=== PATIENT | female | born 1960 | race Caucasian/White ===

== ENCOUNTER → 2017-11-13 | Outpatient (CLI) | payer OTHER ==
[~2017-11-13] MED LIST: ALPR.25 PO; CYAN500; FAMO20 PO; LORA.5 PO; MYLANTA; [UNRECOGNIZED DRUG - REMARK]
[2017-11-15 12:18] LABS: HPV Genotype 16 Not Detected (NOTDET); HPV Genotype 18 Not Detected (NOTDET)
[2017-11-18 09:56] LABS: HPV High Risk Other Not Detected (NOTDET)
== END | disposition home or self-care (01) ==
LOC: LAB 16:01
PROVIDERS: Nurse Practitioner Women's Health
DX: Z12.72 Encounter for screening for malignant neoplasm of vagina (principal); Z91.89 Other specified personal risk factors, not elsewhere classified
CPT/HCPCS: 87624; G0123

== ENCOUNTER 2017-12-27 06:48 | Day surgery (SDC) | payer OTHER ==
[~2017-12-27] VITALS: Ht 162.6 cm; Wt 66.1 kg
== END 2017-12-27 09:14 | disposition home or self-care (01) ==
LOC: ORSCSDS 06:48
PROVIDERS: Internal Medicine Gastroenterology
PROC: 0DB68ZX Excision of Stomach, Via Natural or Artificial Opening Endoscopic, Diagnostic (ICD-10-PCS; principal; 2017-12-27 08:00)
PROC: 0DJD8ZZ Inspection of Lower Intestinal Tract, Via Natural or Artificial Opening Endoscopic (ICD-10-PCS; principal; 2017-12-27 08:00)
PROC: 0DB98ZX Excision of Duodenum, Via Natural or Artificial Opening Endoscopic, Diagnostic (ICD-10-PCS; principal; 2017-12-27 08:00)
DX: R10.11 Right upper quadrant pain (principal); K31.7 Polyp of stomach and duodenum; K44.9 Diaphragmatic hernia without obstruction or gangrene; R93.3 Abnormal findings on diagnostic imaging of other parts of digestive tract; K76.0 Fatty (change of) liver, not elsewhere classified; E78.5 Hyperlipidemia, unspecified
CPT/HCPCS: 88305; 88342; J0330; J1980; J2405; J7120

== ENCOUNTER 2020-09-22 09:32 | Emergency (ER) | payer OTHER ==
[~2020-09-22] VITALS: Ht 170.2 cm; Wt 72.6 kg
[2020-09-22 10:27] LABS: BASOPHILS ABSOLUTE AUTO 0.02 K/mm3 (0.00-0.23); BASOPHILS PERCENT AUTO 0 % (0-2); EOSINOPHILS ABSOLUTE AUTO 0.14 K/mm3 (0.00-0.68); EOSINOPHILS PERCENT AUTO 2 % (0-6); Hematocrit 42.5 % (33.0-51.0); Hemoglobin 14.4 g/dL (11.5-16.0); IMMATURE GRAN ABSOLUTE AUTO 0.02 K/mm3 (0.00-0.10); IMMATURE GRAN PERCENT AUTO 0 % (0-1); LYMPHOCYTES ABSOLUTE AUTO 1.97 K/mm3 (0.84-5.20); LYMPHOCYTES PERCENT AUTO 31 % (21-46); MONOCYTES ABSOLUTE AUTO 0.49 K/mm3 (0.16-1.47); MONOCYTES PERCENT AUTO 8 % (4-13); Mean Corpuscular HGB 29.7 pg (26.0-34.0); Mean Corpuscular HGB Conc 33.9 g/dL (31.5-36.5); Mean Corpuscular Volume 88 fL (80-100); Mean Platelet Volume 9.3 fL (9.1-12.4); NEUTROPHILS ABSOLUTE AUTO 3.67 K/mm3 (1.96-9.15); NEUTROPHILS PERCENT AUTO 58 % (41-73); Platelet Count 277 K/mm3 (150-400); RDW Standard Deviation 41.9 fL (35.1-46.3); Red Blood Cell Count 4.85 M/mm3 (3.80-5.20); White Blood Cell Count 6.31 K/mm3 (4.00-11.30)
[2020-09-22 10:40] LABS: Alanine Aminotransfer (ALT/SGP 18 U/L (12-78); Albumin, Blood 3.6 g/dL (3.4-5.0); Albumin/Globulin Ratio 1.1 (0.8-1.8); Alk Phos 115 U/L (50-136); Anion Gap 8 mmol/L (6-16); Aspartate Aminotrans (AST/SGOT 16 U/L (12-37); Bilirubin, Total 0.4 mg/dL (0.1-1.0); Blood Urea Nitrogen 14 mg/dL (8-24); Bun/Creatinine Ratio 18.2 (12.0-20.0); CO2, Blood 23 mmol/L (21-32); Calcium, Blood 9.4 mg/dL (8.5-10.1); Chloride, Blood 111 mmol/L (98-108); Creatinine, Blood 0.77 mg/dL (0.40-1.00); Globulin, Blood 3.4 g/dL (2.2-4.0); Glomerular Filtration Rate >60 (60-); Glucose, Blood 97 mg/dL (70-99); Potassium, Blood 4.3 mmol/L (3.5-5.5); Sodium, Blood 142 mmol/L (136-145); Troponin I <0.015 ng/mL (0.000-0.040)
== END 2020-09-22 14:10 | disposition home or self-care (01) ==
LOC: ER 09:32
PROVIDERS: Emergency Medicine
DX: R07.9 Chest pain, unspecified (principal); R42 Dizziness and giddiness; R06.02 Shortness of breath; E78.00 Pure hypercholesterolemia, unspecified; Z88.0 Allergy status to penicillin; Z88.5 Allergy status to narcotic agent; Z88.8 Allergy status to other drugs, medicaments and biological substances
CPT/HCPCS: 36415; 71046; 80053; 84484; 85025; 93005; 93010; 99285-25

== ENCOUNTER 2020-10-29 09:49 | Inpatient (IN) | payer OTHER ==
[~2020-10-29] VITALS: Ht 162.6 cm; Wt 63.5 kg
[2020-10-29 11:18] LABS: BASOPHILS ABSOLUTE AUTO 0.01 K/mm3 (0.00-0.23); BASOPHILS PERCENT AUTO 0 % (0-2); EOSINOPHILS ABSOLUTE AUTO 0.04 K/mm3 (0.00-0.68); EOSINOPHILS PERCENT AUTO 0 % (0-6); Hematocrit 43.1 % (33.0-51.0); Hemoglobin 14.4 g/dL (11.5-16.0); IMMATURE GRAN ABSOLUTE AUTO 0.05 K/mm3 (0.00-0.10); IMMATURE GRAN PERCENT AUTO 0 % (0-1); LYMPHOCYTES ABSOLUTE AUTO 1.61 K/mm3 (0.84-5.20); LYMPHOCYTES PERCENT AUTO 12 % (21-46); MONOCYTES ABSOLUTE AUTO 0.79 K/mm3 (0.16-1.47); MONOCYTES PERCENT AUTO 6 % (4-13); Mean Corpuscular HGB 30.1 pg (26.0-34.0); Mean Corpuscular HGB Conc 33.4 g/dL (31.5-36.5); Mean Corpuscular Volume 90 fL (80-100); Mean Platelet Volume 8.9 fL (9.1-12.4); NEUTROPHILS ABSOLUTE AUTO 11.03 K/mm3 (1.96-9.15); NEUTROPHILS PERCENT AUTO 82 % (41-73); Platelet Count 271 K/mm3 (150-400); RDW Coefficient Variation 13.1 % (11.7-14.2); RDW Standard Deviation 43.2 fL (35.1-46.3); Red Blood Cell Count 4.79 M/mm3 (3.80-5.20); White Blood Cell Count 13.53 K/mm3 (4.00-11.30)
[2020-10-29 11:35] LABS: Alanine Aminotransfer (ALT/SGP 14 U/L (12-78); Albumin, Blood 3.6 g/dL (3.4-5.0); Albumin/Globulin Ratio 0.8 (0.8-1.8); Alk Phos 124 U/L (50-136); Anion Gap 7 mmol/L (6-16); Aspartate Aminotrans (AST/SGOT 10 U/L (12-37); Bilirubin, Total 0.8 mg/dL (0.1-1.0); Blood Urea Nitrogen 7 mg/dL (8-24); Bun/Creatinine Ratio 8.9 (12.0-20.0); CO2, Blood 28 mmol/L (21-32); Calcium, Blood 9.7 mg/dL (8.5-10.1); Chloride, Blood 104 mmol/L (98-108); Creatinine, Blood 0.79 mg/dL (0.40-1.00); Globulin, Blood 4.3 g/dL (2.2-4.0); Glomerular Filtration Rate >60 (60-); Glucose, Blood 100 mg/dL (70-99); Potassium, Blood 3.6 mmol/L (3.5-5.5); Sodium, Blood 139 mmol/L (136-145); Total Protein, Blood 7.9 g/dL (6.4-8.2)
[2020-10-29 11:42] LABS: Source, Urine Clean Catch
[2020-10-29 11:54] LABS: Appearance, Urine Clear (Clear); Bilirubin, Urine Neg (Neg); Blood, Urine 2+ (Neg); Color, Urine Yellow (P-Yellow); Glucose Qualitative, Urine Neg (Neg); Ketones, Urine 3+ (Neg); Leukocyte Esterase, Urine Neg (Neg); Nitrite, Urine Neg (Neg); Protein, Urine 2+ (Neg); Specific Gravity, Urine 1.025 (1.003-1.022); Urobilinogen, Urine NORM (Normal)
[2020-10-29 12:05] LABS: Bacteria Rare /hpf; Mucus Mod (0-Heavy); Red Blood Cells, Urine 0-2 /hpf (0-2); Squamous Epithelial Cells Few /hpf (Few); White Blood Cells, Urine 0-2 /hpf (0-5)
[2020-10-29] MEDS ORDERED: CYAN1000I IM (12:12)
--- NOTE | 2020-10-29 14:14 | NUR ---
Upon receiving a referral from Maliha Arreola, I visit patient is the ER. Patient is processing the information from the doctor and admits to being nervous but still having alfa in God. Patient is then in process to 232 as an admit patient. I provide prayer for patient which patient expresses gratitude for. I will continue to remain availble to patient and family.
--- NOTE | 2020-10-29 15:03 | NUR ---
PATIENT ARRIVED FROM ER TODAY 10/29/2020 AT 1440. SHE IS ALERT AND ORIENTED X4. VITALS ARE WNL AND SHE IS ON RA. SHE REPORTS NOT HAVING PAIN AT THIS TIME. WILL MEDICATE PER EMAR WHEN SHE BECOMES PAINFUL. SHE IS ABLE TO AMBULATE WITH NO PAIN. PATIENT WAS SHOWN WHERE THE CALL LIGHT IS AND HOW IT WORKS. CALL LIGHT WITHIN REACH.
--- NOTE | 2020-10-29 16:57 | NUR ---
SHIFT SUMMARY: DIVERTICULITIS PATIENT HAS BEEN ALERT AND ORIENTATED X4 THROUGHOUT SHIFT. HER VITALS ARE WNL AND IS ON RA. PAIN IS UNDER CONTROL AT THIS TIME. PATIENT HAS PAIN MEDICATIONS PER EMAR IF NEEDED. SHE IS ABLE TO AMBULATE WITHOUT PAIN. PATIENT WAS EDUCATED ON PATIENT ROUNDING. SHE IS VERY PLEASANTFUL AND UNDERSTANDING. PATIENT HAS IV FLUIDS AND ABX RUNNING. CALL LIGHT IS WITHIN REACH. PATIENT IS LAYING IN BED WATCHING TV. THE PLAN IS TO CONTINUE ABX AND FLUIDS AT THIS TIME.
--- NOTE | 2020-10-30 04:24 | NUR ---
SHIFT SUMMARY PT RESTED IN SMALL SEGMENTS T/O NIGHT. AAOX4/ANXIOUS AT TIMES. DISCOMFORT DECREASED WITH X1 TYLENOL THIS SHIFT. DENIES NAUSEA/EMESIS. TOLERATING CLEAR LIQUID DIET WELL. PT UP TO RESTROOM SBA, TOLERATES WELL. IVF + ABX PER ORDERS. PT REPORTING SMALL AMOUNTS FLATUS THIS AM, NO BM. PT CURRENTLY SITTING UP IN BED WITH CALL LIGHT IN REACH WATCHING TV.
[2020-10-30 04:31] LABS: BASOPHILS ABSOLUTE AUTO 0.01 K/mm3 (0.00-0.23); BASOPHILS PERCENT AUTO 0 % (0-2); EOSINOPHILS PERCENT AUTO 1 % (0-6); Hematocrit 35.6 % (33.0-51.0); Hemoglobin 11.9 g/dL (11.5-16.0); IMMATURE GRAN ABSOLUTE AUTO 0.04 K/mm3 (0.00-0.10); IMMATURE GRAN PERCENT AUTO 0 % (0-1); LYMPHOCYTES ABSOLUTE AUTO 1.22 K/mm3 (0.84-5.20); LYMPHOCYTES PERCENT AUTO 10 % (21-46); MONOCYTES ABSOLUTE AUTO 1.01 K/mm3 (0.16-1.47); MONOCYTES PERCENT AUTO 9 % (4-13); Mean Corpuscular HGB 29.8 pg (26.0-34.0); Mean Corpuscular HGB Conc 33.4 g/dL (31.5-36.5); Mean Corpuscular Volume 89 fL (80-100); Mean Platelet Volume 9.5 fL (9.1-12.4); NEUTROPHILS ABSOLUTE AUTO 9.55 K/mm3 (1.96-9.15); NEUTROPHILS PERCENT AUTO 80 % (41-73); Platelet Count 227 K/mm3 (150-400); RDW Coefficient Variation 13.1 % (11.7-14.2); RDW Standard Deviation 42.7 fL (35.1-46.3); White Blood Cell Count 11.93 K/mm3 (4.00-11.30)
[2020-10-30 04:48] LABS: Anion Gap 8 mmol/L (6-16); Blood Urea Nitrogen 7 mg/dL (8-24); CO2, Blood 24 mmol/L (21-32); Calcium, Blood 8.6 mg/dL (8.5-10.1); Chloride, Blood 108 mmol/L (98-108); Glomerular Filtration Rate >60 (60-); Glucose, Blood 103 mg/dL (70-99); Potassium, Blood 3.4 mmol/L (3.5-5.5); Sodium, Blood 140 mmol/L (136-145)
--- NOTE | 2020-10-30 16:00 | NUR ---
SHIFT SUMMARY PT A&OX4, VSS/RA, IVF LR @ 75 MLS/HR, ABX INF PER EMAR, KCL X2 BAGS INFUSED. PAIN MANAGED W/TYLENOL AND TORADOL. JENARO FULL LIQUID DIET, DENIES N&V. AMBULATING INDEPENDENT IN ROOM, TO BRP, IN HALLWAY. TCDB & I.S. EDU & ENC, PT DEMONSTRATED. VOIDING WELL; BM LIQUID X1. WILL REPORT TO NEXT RN.
--- NOTE | 2020-10-31 04:26 | NUR ---
SHIFT SUMMARY PT RESTED WELL T/O NIGHT. AAOX4. PT REPORTING MINIMAL DISCOMFORT T/O NIGHT, DENIES NAUSEA/EMESIS. PT REPORTING MODERATE AMOUNTS OF FLATUS WITH SMALL AMOUNTS OF LIQUID STOOL. TOLERATING SMALL AMOUNTS FULL LIQUID DIET + LARGE AMOUNTS OF URINE OUTPUT. IVF + ABX PER ORDERS. PT CURRENTLY SITTING UP IN BED READING BOOK WITH CALL LIGHT IN REACH.
[2020-10-31 09:23] LABS: Anion Gap 8 mmol/L (6-16); Blood Urea Nitrogen 6 mg/dL (8-24); Bun/Creatinine Ratio 8.7 (12.0-20.0); CO2, Blood 24 mmol/L (21-32); Calcium, Blood 8.8 mg/dL (8.5-10.1); Chloride, Blood 106 mmol/L (98-108); Creatinine, Blood 0.69 mg/dL (0.40-1.00); Glomerular Filtration Rate >60 (60-); Glucose, Blood 128 mg/dL (70-99); Potassium, Blood 3.5 mmol/L (3.5-5.5); Sodium, Blood 138 mmol/L (136-145)
[2020-10-31] MEDS ORDERED: LEVFLO500 PO (14:02)
[2020-10-31] MEDS ORDERED: METR500 PO (14:03)
--- NOTE | 2020-10-31 15:04 | NUR ---
DISCHARGE PT DISCHARGED HOME FROM UNIT AT APROX 1500. PT GIVEN WRITTEN AND VERBAL DISCHARGE INSTRUCTIOS AND VERBALIZED UNDERSTANDING OF THESE INSTRUCTIONS. IV REMOVED, PT TOLERATED WELL. WHEELCHAIR TO CAR
== END 2020-10-31 15:00 | disposition home or self-care (01) | DRG 392 ==
LOC: ER 09:49 → SURS 13:35
PROVIDERS: Emergency Medicine; Internal Medicine; ADMIT Internal Medicine
DX: K57.20 Diverticulitis of large intestine with perforation and abscess without bleeding (principal); E87.6 Hypokalemia; K58.9 Irritable bowel syndrome, unspecified
CPT/HCPCS: 36415; 74177; 80048; 80053; 81001; 83690; 85025; 93005; 93010; 96374-59; 99285-25; A9270; J0694; J0696; J1885; J3480; J7120; Q9967

== ENCOUNTER 2021-02-24 15:48 | Emergency (ER) | payer OTHER ==
[~2021-02-24] VITALS: Ht 162.6 cm; Wt 61.2 kg
[~2021-02-24 15:48] MED LIST changes: +CYAN1000I IM; +LEVFLO500 PO; +METR500 PO
[2021-02-24 16:46] LABS: BASOPHILS ABSOLUTE AUTO 0.02 K/mm3 (0.00-0.23); BASOPHILS PERCENT AUTO 0 % (0-2); EOSINOPHILS PERCENT AUTO 1 % (0-6); Hematocrit 41.3 % (33.0-51.0); Hemoglobin 13.8 g/dL (11.5-16.0); IMMATURE GRAN ABSOLUTE AUTO 0.04 K/mm3 (0.00-0.10); IMMATURE GRAN PERCENT AUTO 0 % (0-1); LYMPHOCYTES PERCENT AUTO 16 % (21-46); MONOCYTES ABSOLUTE AUTO 0.67 K/mm3 (0.16-1.47); MONOCYTES PERCENT AUTO 6 % (4-13); Mean Corpuscular HGB 29.9 pg (26.0-34.0); Mean Corpuscular HGB Conc 33.4 g/dL (31.5-36.5); Mean Corpuscular Volume 90 fL (80-100); NEUTROPHILS ABSOLUTE AUTO 8.42 K/mm3 (1.96-9.15); NEUTROPHILS PERCENT AUTO 76 % (41-73); Platelet Count 264 K/mm3 (150-400); RDW Coefficient Variation 13.5 % (11.7-14.2); RDW Standard Deviation 44.1 fL (35.1-46.3); Red Blood Cell Count 4.61 M/mm3 (3.80-5.20); White Blood Cell Count 11.05 K/mm3 (4.00-11.30)
[2021-02-24 17:01] LABS: Alanine Aminotransfer (ALT/SGP 26 U/L (12-78); Albumin, Blood 3.7 g/dL (3.4-5.0); Albumin/Globulin Ratio 1.1 (0.8-1.8); Alk Phos 115 U/L (50-136); Anion Gap 9 mmol/L (6-16); Aspartate Aminotrans (AST/SGOT 17 U/L (12-37); Bilirubin, Total 0.7 mg/dL (0.1-1.0); Blood Urea Nitrogen 11 mg/dL (8-24); Bun/Creatinine Ratio 13.4 (12.0-20.0); CO2, Blood 24 mmol/L (21-32); Calcium, Blood 8.9 mg/dL (8.5-10.1); Chloride, Blood 106 mmol/L (98-108); Creatinine, Blood 0.82 mg/dL (0.40-1.00); Globulin, Blood 3.5 g/dL (2.2-4.0); Glomerular Filtration Rate >60 (60-); Glucose, Blood 92 mg/dL (70-99); Potassium, Blood 3.7 mmol/L (3.5-5.5); Sodium, Blood 139 mmol/L (136-145); Total Protein, Blood 7.2 g/dL (6.4-8.2); Troponin I <0.015 ng/mL (0.000-0.040)
[2021-02-24] MEDS ORDERED: IBUP200 (21:26)
[2021-02-24] MEDS ORDERED: Bactrim Ds Tab1 EACH PO (22:51)
[2021-02-24] MEDS ORDERED: Flagyl500 MG PO (22:51)
== END 2021-02-24 22:59 | disposition home or self-care (01) ==
LOC: ER 15:48
PROVIDERS: Physician Assistant
DX: K57.32 Diverticulitis of large intestine without perforation or abscess without bleeding (principal)
CPT/HCPCS: 36415; 71046; 74177; 80053; 84484; 85025; 93005; 93010; 96374-59; 99284-25; A9270-GY; J1885; Q9967

== ENCOUNTER 2021-02-26 16:50 | Emergency (ER) | payer OTHER ==
[~2021-02-26] VITALS: Ht 162.6 cm; Wt 63.5 kg
[~2021-02-26 16:50] MED LIST changes: +Bactrim Ds Tab1 EACH PO; +Flagyl500 MG PO; +IBUP200
[2021-02-26 17:30] LABS: BASOPHILS ABSOLUTE AUTO 0.01 K/mm3 (0.00-0.23); BASOPHILS PERCENT AUTO 0 % (0-2); EOSINOPHILS ABSOLUTE AUTO 0.14 K/mm3 (0.00-0.68); EOSINOPHILS PERCENT AUTO 2 % (0-6); Hematocrit 39.5 % (33.0-51.0); Hemoglobin 13.4 g/dL (11.5-16.0); IMMATURE GRAN ABSOLUTE AUTO 0.02 K/mm3 (0.00-0.10); IMMATURE GRAN PERCENT AUTO 0 % (0-1); LYMPHOCYTES ABSOLUTE AUTO 1.66 K/mm3 (0.84-5.20); LYMPHOCYTES PERCENT AUTO 19 % (21-46); MONOCYTES ABSOLUTE AUTO 0.64 K/mm3 (0.16-1.47); MONOCYTES PERCENT AUTO 7 % (4-13); Mean Corpuscular HGB 30.2 pg (26.0-34.0); Mean Corpuscular HGB Conc 33.9 g/dL (31.5-36.5); Mean Corpuscular Volume 89 fL (80-100); Mean Platelet Volume 8.7 fL (9.1-12.4); NEUTROPHILS ABSOLUTE AUTO 6.42 K/mm3 (1.96-9.15); NEUTROPHILS PERCENT AUTO 72 % (41-73); NRBC ABSOLUTE 0.02 K/mm3 (0.00-0.02); NRBC Auto 0.2 /100 WBC (0.0-0.2); Platelet Count 298 K/mm3 (150-400); RDW Coefficient Variation 13.3 % (11.7-14.2); RDW Standard Deviation 43.4 fL (35.1-46.3); Red Blood Cell Count 4.44 M/mm3 (3.80-5.20); White Blood Cell Count 8.89 K/mm3 (4.00-11.30)
[2021-02-26 17:57] LABS: Alanine Aminotransfer (ALT/SGP 19 U/L (12-78); Albumin, Blood 3.5 g/dL (3.4-5.0); Albumin/Globulin Ratio 0.9 (0.8-1.8); Alk Phos 104 U/L (50-136); Anion Gap 7 mmol/L (6-16); Aspartate Aminotrans (AST/SGOT 13 U/L (12-37); Bilirubin, Total 0.7 mg/dL (0.1-1.0); Blood Urea Nitrogen 6 mg/dL (8-24); Bun/Creatinine Ratio 6.6 (12.0-20.0); CO2, Blood 22 mmol/L (21-32); Calcium, Blood 9.1 mg/dL (8.5-10.1); Chloride, Blood 106 mmol/L (98-108); Creatinine, Blood 0.91 mg/dL (0.40-1.00); Globulin, Blood 3.8 g/dL (2.2-4.0); Glomerular Filtration Rate >60 (60-); Glucose, Blood 98 mg/dL (70-99); Potassium, Blood 3.8 mmol/L (3.5-5.5); Sodium, Blood 135 mmol/L (136-145); Total Protein, Blood 7.3 g/dL (6.4-8.2)
[2021-02-26 19:11] LABS: Source, Urine Clean Catch
[2021-02-26 19:13] LABS: Appearance, Urine Clear (Clear); Bilirubin, Urine Neg (Neg); Blood, Urine 1+ (Neg); Color, Urine Yellow (P-Yellow); Glucose Qualitative, Urine Neg (Neg); Ketones, Urine 3+ (Neg); Leukocyte Esterase, Urine 1+ (Neg); Nitrite, Urine Neg (Neg); Protein, Urine Neg (Neg); Specific Gravity, Urine 1.015 (1.003-1.022); Urobilinogen, Urine NORM (Normal)
[2021-02-26 19:54] LABS: Bacteria Rare /hpf; Red Blood Cells, Urine 0-2 /hpf (0-2); Squamous Epithelial Cells Rare /hpf (Few)
[2021-02-26] MEDS ORDERED: Levaquin500 MG PO (20:56)
== END 2021-02-26 21:04 | disposition home or self-care (01) ==
LOC: ER 16:50
PROVIDERS: Physician Assistant
DX: K57.32 Diverticulitis of large intestine without perforation or abscess without bleeding (principal); E78.00 Pure hypercholesterolemia, unspecified; Z88.0 Allergy status to penicillin; Z88.5 Allergy status to narcotic agent; Z79.899 Other long term (current) drug therapy
CPT/HCPCS: 36415; 74177; 80053; 81001; 83690; 85025; 87086; 99284-25; A9270; A9270-GY; Q9967

== ENCOUNTER 2021-03-05 07:49 | Emergency (ER) | payer OTHER ==
[~2021-03-05] VITALS: Ht 162.6 cm; Wt 63.5 kg
[~2021-03-05 07:49] MED LIST changes: +Levaquin500 MG PO
[2021-03-05 08:40] LABS: BASOPHILS ABSOLUTE AUTO 0.02 K/mm3 (0.00-0.23); BASOPHILS PERCENT AUTO 0 % (0-2); EOSINOPHILS ABSOLUTE AUTO 0.09 K/mm3 (0.00-0.68); EOSINOPHILS PERCENT AUTO 1 % (0-6); Hematocrit 43.8 % (33.0-51.0); Hemoglobin 14.9 g/dL (11.5-16.0); IMMATURE GRAN ABSOLUTE AUTO 0.06 K/mm3 (0.00-0.10); IMMATURE GRAN PERCENT AUTO 1 % (0-1); LYMPHOCYTES ABSOLUTE AUTO 1.94 K/mm3 (0.84-5.20); LYMPHOCYTES PERCENT AUTO 20 % (21-46); MONOCYTES ABSOLUTE AUTO 0.58 K/mm3 (0.16-1.47); MONOCYTES PERCENT AUTO 6 % (4-13); Mean Corpuscular HGB 30.2 pg (26.0-34.0); Mean Corpuscular Volume 89 fL (80-100); NEUTROPHILS ABSOLUTE AUTO 6.83 K/mm3 (1.96-9.15); NEUTROPHILS PERCENT AUTO 72 % (41-73); Platelet Count 300 K/mm3 (150-400); RDW Coefficient Variation 13.2 % (11.7-14.2); RDW Standard Deviation 43.1 fL (35.1-46.3); Red Blood Cell Count 4.93 M/mm3 (3.80-5.20); White Blood Cell Count 9.52 K/mm3 (4.00-11.30)
[2021-03-05 08:43] LABS: Alanine Aminotransfer (ALT/SGP 20 U/L (12-78); Albumin, Blood 3.6 g/dL (3.4-5.0); Alk Phos 100 U/L (50-136); Anion Gap 8 mmol/L (6-16); Aspartate Aminotrans (AST/SGOT 20 U/L (12-37); Bilirubin, Total 0.3 mg/dL (0.1-1.0); Blood Urea Nitrogen 8 mg/dL (8-24); Bun/Creatinine Ratio 10.3 (12.0-20.0); CO2, Blood 23 mmol/L (21-32); Chloride, Blood 106 mmol/L (98-108); Creatinine, Blood 0.78 mg/dL (0.40-1.00); Globulin, Blood 3.6 g/dL (2.2-4.0); Glomerular Filtration Rate >60 (60-); Glucose, Blood 96 mg/dL (70-99); Potassium, Blood 3.5 mmol/L (3.5-5.5); Sodium, Blood 137 mmol/L (136-145); Total Protein, Blood 7.2 g/dL (6.4-8.2); Troponin I <0.015 ng/mL (0.000-0.040)
== END 2021-03-05 10:44 | disposition home or self-care (01) ==
LOC: ER 07:49
PROVIDERS: Emergency Medicine
DX: R55 Syncope and collapse (principal); R42 Dizziness and giddiness; E78.00 Pure hypercholesterolemia, unspecified; Z88.0 Allergy status to penicillin; Z88.5 Allergy status to narcotic agent; Z79.899 Other long term (current) drug therapy
CPT/HCPCS: 36415; 71045; 80053; 84484; 85025; 93005; 93010; 99284-25; J7030

== ENCOUNTER 2021-10-11 13:03 | Day surgery (SDC) | payer OTHER ==
[~2021-10-11] VITALS: Ht 193 cm; Wt 63.7 kg
[2021-10-12] MEDS ORDERED: MIRT15 PO (06:23)
== END 2021-10-11 15:35 | disposition home or self-care (01) ==
LOC: ORSCSDS 13:03
PROVIDERS: Surgery
PROC: 0DBL8ZX Excision of Transverse Colon, Via Natural or Artificial Opening Endoscopic, Diagnostic (ICD-10-PCS; principal; 2021-10-11 14:15)
DX: K57.20 Diverticulitis of large intestine with perforation and abscess without bleeding (principal); D12.3 Benign neoplasm of transverse colon; K21.9 Gastro-esophageal reflux disease without esophagitis; E78.5 Hyperlipidemia, unspecified; Z79.899 Other long term (current) drug therapy
CPT/HCPCS: 88305; J0461; J2405; J2704; J7120

== ENCOUNTER 2021-10-12 06:06 | Inpatient (IN) | payer OTHER ==
[~2021-10-12] VITALS: Ht 162.6 cm; Wt 65.4 kg
[2021-10-12] MEDS ORDERED: MIRT15 PO (06:23)
--- NOTE | 2021-10-12 06:48 | NUR ---
Ambulatory in Day Surgery History, Chart, Medications and Allergies reviewed before start of procedure. Lungs clear T/O to Auscultation. Patient states colon prep results clear.
--- NOTE | 2021-10-12 12:06 | NUR ---
1200-PT STATES "IM GOING TO THROW UP" EVEN AFTER ZOFRAN GIVEN. DR. ATKINS NOTIFIED AND STAED TO GIVE THE ORDERED PHENERGAN. 6.25MG IV GIVEN DUE TO PTS SOMNOLENCE.PT HAS NO SENSATION FROM NIPPLE LINE DOWN. ABLE TO MOVE BILAT LEGS.STRONG BILAT ARM MOVEMENT. GOOD RESP EFFORT. EPIDURAL INFUSION WITH HELD AT THIS TIME. PT DENIES PAIN
--- NOTE | 2021-10-12 13:08 | NUR ---
PT TO ROOM. PT VERY LETHARGIC AND BOTHERED BY LIGHT. PT NAUSEOUS IN PACU AND GIVEN PHENERGAN. PT VERY DISORIENTED AND HAS NO SENSATION FROM THE NIPPLE LINE DOWN. PT ALSO FAIRLY BRADYCARDIC AND TEMPERATURE IS LOW. SEE VITAL SIGN HX.
--- NOTE | 2021-10-12 14:33 | NUR ---
EPIDURAL STARTED AT THIS TIME. CONFIRMED WITH YARON DAWSON.
--- NOTE | 2021-10-12 14:42 | NUR ---
CALL PLACED TO ANESTHESIOLOGIST AT AROUND 1315. ADVISED TO WAIT TO START EPIDURAL AT AROUND 1500 OR WHENEVER PT BEGINS TO EXPERIENCE PAIN.
--- NOTE | 2021-10-12 18:30 | NUR ---
SHIFT SUMMARY PT STATUS POST FOR SIGMOID COLECTOMY. PT VERY LETHARGIC WHEN SHE GOT TO THE FLOOR AND STILL FROM EPIDURAL TO HER NIPPLE LINE. PT'S PULSE AND TEMPERATURE WERE ALSO LOW. PT HAS A LOW HR AT BASELINE. PT NOW A/O X4 AND EPIDURAL STARTED FOR PAIN CONTROL. PT'S PAIN IS CONTROLLED WELL AND SHE IS FAIRLY NUMB TO L3. 1 BM AFTER SURGERY. RYAN IN PLACE AND DRAINING TO GRAVITY. ONE INSTANCE OF EMESIS AFTER EATING DINNER. Q1 CHECKS ON EPIDURAL. WILL REPORT TO MERVIN DAWSON.
[2021-10-13 05:33] LABS: BASOPHILS ABSOLUTE AUTO 0.01 K/mm3 (0.00-0.23); BASOPHILS PERCENT AUTO 0 % (0-2); EOSINOPHILS PERCENT AUTO 0 % (0-6); Hematocrit 35.3 % (33.0-51.0); Hemoglobin 11.9 g/dL (11.5-16.0); IMMATURE GRAN ABSOLUTE AUTO 0.03 K/mm3 (0.00-0.10); IMMATURE GRAN PERCENT AUTO 0 % (0-1); LYMPHOCYTES ABSOLUTE AUTO 1.76 K/mm3 (0.84-5.20); LYMPHOCYTES PERCENT AUTO 17 % (21-46); MONOCYTES ABSOLUTE AUTO 0.82 K/mm3 (0.16-1.47); MONOCYTES PERCENT AUTO 8 % (4-13); Mean Corpuscular HGB 30.7 pg (26.0-34.0); Mean Corpuscular HGB Conc 33.7 g/dL (31.5-36.5); Mean Corpuscular Volume 91 fL (80-100); Mean Platelet Volume 9.4 fL (9.1-12.4); NEUTROPHILS ABSOLUTE AUTO 7.85 K/mm3 (1.96-9.15); NEUTROPHILS PERCENT AUTO 75 % (41-73); Platelet Count 224 K/mm3 (150-400); RDW Coefficient Variation 12.9 % (11.7-14.2); RDW Standard Deviation 43.2 fL (35.1-46.3); Red Blood Cell Count 3.88 M/mm3 (3.80-5.20); White Blood Cell Count 10.47 K/mm3 (4.00-11.30)
--- NOTE | 2021-10-13 05:54 | NUR ---
SHIFT SUMMARY PT A/O X4, Q1 VSS. PT RESTED IN BED ALL NIGHT D/T EPIDERAL. PAIN CONTROLLED BY EPIDERAL. EPIDERAL DRESSING C/D/I. MIDLINE KEVIN ABD DRESSING C/D/I. X1 LIQUID BLACK STOOL OVERNIGHT. PATIENT EPIDERAL/VS ASSESSED Q1. PT TURNED Q2.
[2021-10-13 05:59] LABS: Anion Gap 8 mmol/L (6-16); Blood Urea Nitrogen 8 mg/dL (8-24); Bun/Creatinine Ratio 10.6 (12.0-20.0); CO2, Blood 26 mmol/L (21-32); Calcium, Blood 8.4 mg/dL (8.5-10.1); Chloride, Blood 108 mmol/L (98-108); Creatinine, Blood 0.75 mg/dL (0.40-1.00); Glomerular Filtration Rate >60 (60-); Glucose, Blood 97 mg/dL (70-99); Potassium, Blood 3.8 mmol/L (3.5-5.5); Sodium, Blood 142 mmol/L (136-145)
--- NOTE | 2021-10-13 07:59 | NUR ---
ADJUSTED EPIDURAL DOSE TO 10 ML/HR. VERIFIED WITH SAMIR OAKLEY.
--- NOTE | 2021-10-13 11:59 | NUR ---
TURNED PATIENT FOR CHANGING AND FLUID BEGAN TO POOL IN THE DRESSING. PAUSED EPIDURAL AND NOTIFIED ANESTHESIOLOGIST. PT'S BP ALSO TRENDING DOWN AND SHE HAS NOT FELT THE NEED TO PRESS THE BUTTON FOR ADDITIONAL PAIN RELIEF. PT DOES NOT REPORT ANY DIZZINESS.
--- NOTE | 2021-10-13 18:22 | NUR ---
SHIFT SUMMARY PT POD #1 FOR SIGMOID COLECTOMY. MIDLINE KEVIN DRESSING CDI. PT ON EPIDURAL AND TITRATED FROM 12 ML/HR TO 10 ML/HR THIS AM. PT CONTINUED TO BE QUITE NUMB AND BECAME INCREASINGLY HYPOTENSIVE WITH SBP'S IN THE 80'S. LEAKING AT THE EPIDURAL SITE OBSERVED WELL. EPIDURAL PAUSED AT THAT TIME IN ORDER TO CONSULT WITH ANESTHESIOLOGIST. EPIDURAL PAUSED FOR AROUND 2 HOURS AND PT REPORTED 10/10 PAIN WHEN REPOSITIONED. EPIDURAL CONTINUED AT 5 MLS/HR FOR NEARLY 3-4 HOURS AND PATIENT HAS CONTINUED TO REPORT 8-10/10 PAIN. CONSULTED WITH ANESTHESIOLOGIST AND RANGE GIVEN FOR 5-15 MLS/HR BASAL RATE FOR EPIDURAL GIVEN. PT ALSO HAD 2 LARGE LIQUID STOOLS THIS SHIFT. NO REPORTS OF NAUSEA. VS CURRENTLY STABLE. WILL REPORT TO MERVIN DAWSON.
--- NOTE | 2021-10-14 03:37 | NUR ---
SHIFT SUMMARY PT COMFORTABLE IN BED WITH EPIDURAL RUNNING. PAIN 01/19. SLIGHT LEAK IN EPIDERAL CATH. REINFORCED WITH TEGADERM. DOCTORS AWARE OF SMALL LEAK FROM DAY SHIFT PER DAY NURSE. VSS.
--- NOTE | 2021-10-14 08:11 | NUR ---
RIGHT LEG SLIGHTLY DULL SENSATION PER PATIENT FROM GROIN FOLD TO JUST BELOW RIGHT KNEE
--- NOTE | 2021-10-14 17:04 | NUR ---
pt sitting in chair much of shift, having dark liquid stools. pt nicola regular diet without nausea. reports some dull sensation right leg from groin to just below knee, moves all extremities. pt reports pain is adequately controlled. epidural catheter taped in place with no redness or drainage and dressing intact
--- NOTE | 2021-10-14 19:18 | NUR ---
1830 PATIENT TRANSFERED FROM BED TO COMMODE WITH BREANNA. 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 EDGE OF DRESSING AT EPIDURAL SITE IS ROLLED UP AND DROPS OF LIQUID RUNNING DOWN PATIENTS BACK. CATHETER REMAINS TAPED INPLACE.INSERTION SITE REMAINS COVERED WITH STERILE DRESSING, LOOP OF EPIDURAL CATHETER EXPOSED TO AIR. EXPOSED CATHETER COVERED WITH TEGADERM. TEXT MESSAGE SENT TO DR ADRY JEAN REGARDING LEAKING EPIDURAL.
--- NOTE | 2021-10-14 19:40 | NUR ---
spoke with dr ajay denise via phone and discussed leaking epidural catheter. orders received, new tegaderm applied per instructions by Ivanna Oakley RN and myself. epidural infusion resumed at 1929
--- NOTE | 2021-10-14 21:14 | NUR ---
EPIDURAL SUMMARY RECIEVED IN REPORT THAT EPIDURAL CATHETER TEGADERM WAS PUSHED UP DURING A PATIENT TRANSFER PER PREVIOUS RN ON DAY SHIFT. TEGADERM APPLED TO REINFORCE. UPON FURTHER ASSESSMENT @2100, EPIDERAL CATHETER IS OUT OF SKIN UNDER TEGADERM. STERILE 2X2 AND BANDAID APPLIED TO SITE. NO BLEEDING NOTED. BLUE CATHETER EPIDURAL TIP INTACT. DR. JEAN MADE AWARE AT THIS TIME. [facility]
--- NOTE | 2021-10-15 05:57 | NUR ---
SHIFT SUMMARY PT COMFORTABLE AND NOT REQUIRING ANYTHING FOR PAIN POST REMOVAL OF EPIDURAL. DRESSING TO BACK C/D/I. ABD KEVIN C/D/I. ACTIVE BOWEL SOUNDS AND X2 OCCURANCES OF LIQUID STOOLS. BOWEL REGIMEN HELD. BED LOCKED, ALARM ON AND IN LOWEST POSITION. CALL LIGHT AND BEDSIDE TABLE WITHIN REACH.
--- NOTE | 2021-10-15 18:32 | NUR ---
SHIFT SUMMARY; ASSUMED CARE AT 0700. A/A/OX4 DURING SHIFT. AMBULATING ON UNIT WITHOUT DIFFICULTY. RYAN CATH REMOVED TODAY, VOIDING WITHOUT DIFFICULTY. MIDLINE KEVIN DRESSING C/D/I. DRY DRESSING TO EPIDURAL SITE. NO ACUTE MEDICAL CHANGES, WILL CONTINUE TO MONITOR AND TREAT UNTIL CHANGE OF SHIFT.
--- NOTE | 2021-10-16 06:23 | NUR ---
ALERT AND ORIENTED X'S 4. DENIES PAIN OR DISCOMFORT. KEVIN DRESSING TO ABDOMEN CLEAN DRY AND INTACT. PATIENT AMBULATED WITHOUT DISCOMFORT. SLEPT WELL THROUGH NIGHT, SAFETY MAINTAINED.
--- NOTE | 2021-10-16 11:16 | NUR ---
PT. DISCHARGED TO HOME AT 1100. DISCHARGE INSTRUCTIONS GIVEN AND PT. VERBALIZE UNDERSTANDING. PERSONAL BELONGINGS PACKED AND SENT WITH PT., IV REMOVED. W/C TO EXIT, MOTHER HERE TO DRIVE PT. HOME.
== END 2021-10-16 11:00 | disposition home or self-care (01) | DRG 330 ==
LOC: SURS 06:06 → PRE IP 07:30 → SURS 12:28
PROVIDERS: ADMIT Surgery
PROC: 0DTN0ZZ Resection of Sigmoid Colon, Open Approach (ICD-10-PCS; principal; 2021-10-12 07:30)
DX: K57.32 Diverticulitis of large intestine without perforation or abscess without bleeding (principal); T85.630A Leakage of cranial or spinal infusion catheter, initial encounter; E78.5 Hyperlipidemia, unspecified; I95.9 Hypotension, unspecified; M54.9 Dorsalgia, unspecified; G89.29 Other chronic pain; Z28.29 Immunization not carried out because of patient decision for other reason; Y70.8 Miscellaneous anesthesiology devices associated with adverse incidents, not elsewhere classified
CPT/HCPCS: 36415; 80048; 85025; 88307; A9270; J1100; J1650; J1885; J1956; J2001; J2250; J2405; J2550; J2704; J3010; J7120; V2790

== ENCOUNTER → 2022-10-02 | Outpatient (CLI) | payer OTHER ==
[~2022-10-02] MED LIST changes: +MIRT15 PO
== END | disposition home or self-care (01) ==
LOC: LAB SHORT 12:10
DX: C44.41 Basal cell carcinoma of skin of scalp and neck (principal); L57.0 Actinic keratosis
CPT/HCPCS: 88305

== ENCOUNTER → 2023-09-11 | Outpatient (CLI) | payer MEDICARE | LOC: LAB SHORT 09:23 → PLD 09:23 | DX: L57.0 Actinic keratosis (principal) | CPT/HCPCS: 88305 ==